=== PATIENT | male | born 1985 | race African-American/Black ===

== ENCOUNTER 2021-11-11 14:08 | Emergency (ER) | payer OTHER, SELFPAY ==
[2021-11-11 14:18] VITALS: BP 127/78; PULSE 80; RESP 12; TEMP 36.9; O2SAT 100
--- NOTE | 2021-11-11 14:30 | ED.SKABFB ---
HPI - Skin/Abscess/Foreign Bdy General Chief complaint: Skin/Abscess/Foreign Body Stated complaint: Rash on lip Time Seen by Provider: 11/11/21 14:32 Source: patient and RN notes reviewed Mode of arrival: ambulatory Limitations: no limitations History of Present Illness HPI narrative: 36-year-old male presents with concern for a painless palp of a lump in his left lower lip. He denies any redness, drainage. Reports the lump is soft. Report has been there for 3 days. He denies fever, bodies, chills, sweats. He denies any swollen tongue, allergies. Denies general lip swelling. MD complaint: other (swollen lip) Related Data Home Medications Medication Instructions Recorded Confirmed No Home Medications 11/11/21 11/11/21 Allergies Allergy/AdvReac Type Severity Reaction Status Date / Time No Known Allergies Allergy Verified 11/11/21 14:20 Review of Systems Review of Systems: CONSTITUTIONAL: Denies malaise, chills, sweats, or fever. EYES: Denies redness, or discharge. ENT: Denies rhinorrhea, congestion, swollen tongue. Reports localized swelling of the left lower lip CARDIOVASCULAR: Denies chest pain, palpitations, or edema. RESPIRATORY: Denies cough or dyspnea. GASTROINTESTINAL: Denies abdominal pain, nausea, vomiting SKIN: Denies rash MUSCULOSKELETAL: Denies joint painor myalgia. NEUROLOGIC: Denies headache. All systems reviewed & are unremarkable except as noted in HPI and below PMFSH Comments At time of signature, agree with nursing past medical, surgical, social and family history. There is no relevant family history pertinent to the presenting complaint Exam Narrative: GENERAL: Well-appearing, well-nourished, and in no acute distress. HEAD: Normocephalic, atraumatic. EYES: PERRLA, conjunctivae clear, and EOMI. ENT: Mucous membranes moist. Oropharynx without edema, erythema or lesions. Soft, round, painless and mobile nodule noted to the left lower lip approximately 1.5 cm in diameter consistent with mucocele NECK: Supple. No lymphadenopathy CHEST: Clear to auscultation. No respiratory distress. HEART: Regular rate and rhythm. SKIN: Warm, dry. Patches of erythema and edema NEURO: Alert and oriented x3. PSYCH: Normal mood and affect Course Course Emergency Course: Discussed with patient risks outweigh benefits of attempting to drain this mucocele. Discussed that the mucocele will likely resolve on its own. Referral given to general surgery in case mucocele does not resolve on its own. Patient is aware of diagnosis, understands and agrees to treatment plan. Anticipatory guidance given. Patient agrees to follow-up as directed and is aware of reasons to seek care at the emergency department. Portions of this record may have been created with voice recognition software Level of Care: Express Care Visit Vital Signs Vital signs: Vital Signs Temperature 98.5 F 11/11/21 14:18 Pulse Rate 80 11/11/21 14:18 Respiratory Rate 12 11/11/21 14:18 Blood Pressure 127/78 11/11/21 14:18 Pulse Oximetry 100 11/11/21 14:18 Temperature 98.5 F 11/11/21 14:18 Pulse Rate 80 11/11/21 14:18 Respiratory Rate 12 11/11/21 14:18 Blood Pressure 127/78 11/11/21 14:18 Pulse Oximetry 100 11/11/21 14:18 Reviewed. MDM - Skin/Abscess/Foreign Bdy MDM Narrative Medical decision making narrative: Exam findings show no acute concerns or changes; patient is non-toxic appearing and is in no distress. Patient is appropriate for outpatient treatment and follow-up. Critical Care Time Critical Care Time Critical Care Time: No Discharge Plan Discharge Clinical Impression: Mucocele of lower lip Patient Disposition: Home, Self-Care Condition: Stable Additional Instructions: Treatment for mucoceles is usually unnecessary, as most cyst rupture on their own. Don't try to open it yourself. For persistent or large mucoceles, treatment options include cryotherapy, laser treatment, or conservative s
== END 2021-11-11 14:47 | disposition home or self-care (01) ==
PROVIDERS: Emergency Provider Nurse Practitioner
DX: K13.0 Diseases of lips (principal)
CPT/HCPCS: 99211; G0463